=== PATIENT | male | born 1985 | race American Indian/Alaskan Native ===

== ENCOUNTER 2017-01-05 23:36 | Emergency (ER) | payer BC ==
[2017-01-06 00:30] VITALS: TEMP 97.8
[2017-01-06] MEDS ORDERED: Oxycodone/Acetaminophen 5/325 mg Tab PO STA (00:30)
--- NOTE | 2017-01-06 00:37 | ED PDOC ---
Arrival/HPI - General Historian: Patient <Gera Posada - Last Filed: 01/06/17 01:35> <Sudeep Paul - Last Filed: 01/06/17 01:44> - General Chief Complaint: Back Pain Time Seen by Provider: 01/06/17 00:30 - History of Present Illness Narrative History of Present Illness (Text): 01/06/17 00:31 31 y/o male, pmh including htn, nkda, c/o lower back pain s/p heavy lifting the furniture with no fall or trauma. Aching pain, aggravated by movement, no urinary or bowel incontinence or retention, no numbness or tingling, no palpitation, no rash, no other medical or psychological complaints. (Gera Posada) Past Medical History - Provider Review Nursing Documentation Reviewed: Yes - Psychiatric Hx Substance Use: No <Gera Posada - Last Filed: 01/06/17 01:35> Family/Social History - Physician Review Nursing Documentation Reviewed: Yes Family/Social History: Unknown Family HX Smoking Status: Heavy Smoker > 10 Cigarettes Daily Hx Alcohol Use: No Hx Substance Use: No <Gera Posada - Last Filed: 01/06/17 01:35> Allergies/Home Meds <Gera Posada - Last Filed: 01/06/17 01:35> <Sudeep Paul - Last Filed: 01/06/17 01:44> Allergies/Adverse Reactions: Allergies No Known Allergies Allergy (Verified 01/06/17 00:11) Review of Systems - Review of Systems Constitutional: absent: Fatigue, Fevers Eyes: absent: Vision Changes ENT: absent: Hearing Changes Respiratory: absent: SOB, Cough Cardiovascular: absent: Chest Pain Gastrointestinal: absent: Abdominal Pain, Nausea, Vomiting Musculoskeletal: Back Pain. absent: Arthralgias, Neck Pain, Myalgias Neurological: absent: Headache, Dizziness <Gera Posada - Last Filed: 01/06/17 01:35> Physical Exam Vital Signs Reviewed: Yes Temperature: Afebrile Blood Pressure: Hypertensive Pulse: Regular Respiratory Rate: Normal Appearance: Positive for: Well-Appearing, Non-Toxic, Comfortable Pain Distress: None Mental Status: Positive for: Alert and Oriented X 3 - Systems Exam Head: Present: Atraumatic, Normocephalic Pupils: Present: PERRL Extroacular Muscles: Present: EOMI Conjunctiva: Present: Normal Mouth: Present: Moist Mucous Membranes Neck: Present: Normal Range of Motion Respiratory/Chest: Present: Clear to Auscultation, Good Air Exchange. No: Respiratory Distress, Accessory Muscle Use Cardiovascular: Present: Regular Rate and Rhythm, Normal S1, S2. No: Murmurs Abdomen: Present: Normal Bowel Sounds. No: Tenderness, Distention, Peritoneal Signs Back: Present: Normal Inspection, Other (LS spine: +ttp on the rt. paraspinal muscle region with no step off, FROM without limitation, sensation intact, motor 5/5, no saddling gait. ). No: CVA Tenderness, Midline Tenderness, Pain with Leg Raise, Decubitus Ulcer Upper Extremity: Present: Normal Inspection. No: Cyanosis, Edema Lower Extremity: Present: Normal Inspection. No: Edema Neurological: Present: GCS=15, CN II-XII Intact, Speech Normal Skin: Present: Warm, Dry, Normal Color. No: Rashes Psychiatric: Present: Alert, Oriented x 3, Normal Insight, Normal Concentration <Gera Posada - Last Filed: 01/06/17 01:35> Medical Decision Making <Gera Posada - Last Filed: 01/06/17 01:35> <Sudeep Paul - Last Filed: 01/06/17 01:44> ED Course and Treatment: 01/06/17 00:38 -toradol/percocet -pt. is not driving home. -Discharge home with naproxen, flexeril, heat compression, follow up with your own pmd and pain management within 2 days, return to the ER for any new or worsening signs or symptoms. (Gera Posada) - Medication Orders Current Medication Orders: Discontinued Medications Ketorolac Tromethamine (Toradol) 60 mg IM STAT STA Stop: 01/06/17 00:31 Last Admin: 01/06/17 00:41 Dose: Not Given Non-Admin Reason: Patient Refused Oxycodone/Acetaminophen (Percocet 5/325 Mg Tab) 1 tab PO STAT STA Stop: 01/06/17 00:31 Last Admin: 01/06/17 00:44 Dose: 1 tab - PA / ASSISTANT STORE DIRECTOR / Resident Statement MD/DO has reviewed & agrees with the documentation as recorded. <Gera Posada - Last Filed: 01/06/17 01:35> - PA / ASSISTANT STORE DIRECTOR / Resident Statement / has reviewed & agrees with the documentation as recorded. / has examined the patient and agrees with the treatment plan. <Sudeep Paul - Last Filed: 01/06/17 01:44> Disposition/Present on Arrival - Present on Arrival Any Indicators Present on Arrival: No History of DVT/PE: No History of Uncontrolled Diabetes: No Urinary Catheter: No History of Decub. Ulcer: No History Surgical Site Infection Following: None - Disposition Have Diagnosis and Disposition been Completed?: Yes Disposition Time: 00:38 Patient Plan: Discharge <Gera Posada - Last Filed: 01/06/17 01:35> <Sudeep Paul - Last Filed: 01/06/17 01:44> - Disposition Diagnosis: Low back pain Disposition: HOME/ ROUTINE Patient Problems: Current Active Problems Problem Status Onset Low back pain Acute Condition: GOOD Additional Instructions: -Discharge home with naproxen, flexeril, heat compression, follow up with your own pmd and pain management within 2 days, return to the ER for any new or worsening signs or symptoms. Prescriptions: Cyclobenzaprine [Cyclobenzaprine HCl] 10 mg PO TID PRN #21 tab PRN Reason: Other Naproxen 500 mg PO BID #20 tab Referrals: [facility] at [facility] [place] [Outside] - Follow up with primary Forms: [employer] (Hungarian), WORK NOTE
[2017-01-06 00:45] VITALS: O2SAT 100
[2017-01-06 01:08] VITALS: BP 170/81; PULSE 82; RESP 16
== END 2017-01-06 00:45 | disposition home or self-care (01) ==
LOC: ED 23:36
DX: M54.5 Low back pain (principal)